=== PATIENT | female | born 1970 | race Caucasian/White ===

== ENCOUNTER 2016-09-25 15:33 | Emergency (ER) | payer SELFPAY ==
--- NOTE | 2016-09-25 17:37 | Emergency Department Report ---
Chief Complaint: Abdominal Pain Stated Complaint: VAG PAIN/HIP PAIN Time Seen by Provider: 09/25/16 17:26 - HPI History of Present Illness: 46-year-old [place] female comes in for complaint of pelvic pain and lower back pain. She does admit to foul smell of her vaginal discharge while not being on her period. LMP 09/22/2016, she admits to fever and chills. Denies any nausea or vomiting. - Exam Vital Signs: Vital Signs 09/25/16 15:45 Temperature 99.0 F Pulse Rate 76 Respiratory 20 Rate Blood Pressure 133/94 O2 Sat by Pulse 98 Oximetry Physical Exam: Patient's alert and oriented 3. Cardiovascular S1-S2 regular rate and rhythm respiratory clear to auscultation bilateral abdomen tenderness to the right lower quadrant right upper quadrant small marblelike cysts felt. MSE screening note: Focused history and physical exam performed. Due to findings the following was ordered: BC BMP urinalysis urine . Discussed with Dr. Morris patient will be seen in the back with MD's ED Disposition for MSE Condition: Stable Instructions: Abdominal Pain (ED)
[2016-09-25 17:59] LABS: Hematocrit 38.9 % (30.3-42.9); Hemoglobin 12.8 gm/dl (10.1-14.3); Mean Corpuscular HGB Conc 33 % (30-34); Mean Corpuscular Hemoglobin 29 pg (28-32); Mean Corpuscular Volume 89 fl (79-97); Platelet Count 345 K/mm3 (140-440); Red Blood Count 4.37 M/mm3 (3.65-5.03); Red Cell Distribution Width 14.7 % (13.2-15.2)
[2016-09-25 18:18] LABS: Blood Urea Nitrogen 17 mg/dL (7-17); Calcium 9.2 mg/dL (8.4-10.2); Carbon Dioxide 25 mmol/L (22-30); Chloride 103.8 mmol/L (98-107); Glucose 115 mg/dL (65-100); Sodium 142 mmol/L (137-145)
[2016-09-25 18:26] LABS: Anion Gap 17 mmol/L
[2016-09-26] MEDS ORDERED: ZOFRAN ODT PO ONE (03:09)
[2016-09-26] MEDS ORDERED: NORCO 5/325 PO ONE (03:09)
--- NOTE | 2016-09-26 03:16 | Emergency Department Report ---
HPI - General Chief Complaint: Abdominal Pain Time Seen by Provider: 09/25/16 17:26 - HPI HPI: Room 16 The patient is a 46-year-old female presenting with a chief complaint of abdominal pain. The patient states 3 days ago she developed pain in the right lower quadrant. The patient states the pain was initially intermittent but has now become constant. She describes pain as pressure. Patient was a subjective fever but denies nausea vomiting and diarrhea. Patient denies vaginal discharge. She complains of pain in her back. She admits to dysuria but states she always has pain when she urinates while on her cycle. The patient states she is currently on her cycle Location: Right lower quadrant Duration: 3 days Quality: Pressure Severity: 05/24 Modifying factors: [see above] Context: [see above] Mode of transportation: [not driving] ED Past Medical Hx - Past Medical History Previous Medical History?: No - Surgical History Past Surgical History?: No - Family History Family history: no significant - Social History Smoking Status: Current Some Day Smoker (1/3 pack per day) Substance Use Type: Alcohol (occasional) - Medications Home Medications: Home Medications Medication Instructions Recorded Confirmed Last Taken Type HYDROcodone/APAP 5-325 [[place] 1 - 2 each PO Q6HR PRN #14 tablet 09/26/16 Unknown Rx 5/325] Ibuprofen [Motrin 800 MG tab] 800 mg PO Q8HR PRN #20 tablet 09/26/16 Unknown Rx ED Review of Systems ROS: Stated complaint: VAG PAIN/HIP PAIN Other details as noted in HPI Comment: All other systems reviewed and negative Constitutional: fever (subjective) Eyes: denies: eye pain, eye discharge, vision change ENT: denies: ear pain, throat pain Respiratory: denies: cough, shortness of breath, wheezing Cardiovascular: denies: chest pain, palpitations Endocrine: no symptoms reported Gastrointestinal: abdominal pain. denies: nausea, vomiting, diarrhea Genitourinary: dysuria. denies: urgency, discharge Musculoskeletal: back pain Skin: denies: rash, lesions Neurological: denies: headache, weakness, paresthesias Psychiatric: denies: anxiety, depression Hematological/Lymphatic: denies: easy bleeding, easy bruising Physical Exam - Physical Exam Vital Signs: Vital Signs 09/25/16 15:45 Temperature 99.0 F Pulse Rate 76 Respiratory 20 Rate Blood Pressure 133/94 O2 Sat by Pulse 98 Oximetry Physical Exam: GENERAL: The patient is well-developed well-nourished male lying on stretcher not appearing to be in acute distress. [] HEENT: Normocephalic. Atraumatic. Extraocular motions are intact. Patient has moist mucous membranes. NECK: Supple. Trachea Midline CHEST/LUNGS: Clear to auscultation. There is no respiratory distress noted. HEART/CARDIOVASCULAR: Regular. There is no tachycardia. There is no gallop rub or murmur. ABDOMEN: Abdomen is soft, with mild discomfort to palpation in the right lower quadrant and suprapubic region. Patient has normal bowel sounds. There is no abdominal distention. SKIN: There is no rash. There is no edema. There is no diaphoresis. NEURO: The patient is awake, alert, and oriented. The patient is cooperative. The patient has normal speech MUSCULOSKELETAL: There is no evidence of acute injury. ED Course Vital Signs 09/25/16 15:45 Temperature 99.0 F Pulse Rate 76 Respiratory 20 Rate Blood Pressure 133/94 O2 Sat by Pulse 98 Oximetry ED Medical Decision Making - Lab Data Result diagrams: 09/25/16 17:42 09/25/16 17:42 Laboratory Tests 09/25/16 09/25/16 09/25/16 17:42 17:42 17:42 WBC 9.0 RBC 4.37 Hgb 12.8 Hct 38.9 MCV 89 MCH 29 MCHC 33 RDW 14.7 Plt Count 345 Sodium 142 Potassium 4.0 Chloride 103.8 Carbon Dioxide 25 Anion Gap 17 BUN 17 Creatinine 0.5 L Estimated GFR > 60 BUN/Creatinine Ratio 34.00 Glucose 115 H Calcium 9.2 Total Creatine Kinase 51 Urine Color Urine Turbidity Urine pH Ur Specific [place] Urine Protein Urine Glucose (UA) Urine Ketones Urine Blood Urine Nitrite Urine Bilirubin Urine Urobilinogen Ur Leukocyte Esterase Urine WBC (Auto) Urine RBC (Auto) U Epithel Cells (Auto) Urine HCG, Qual 09/26/16 03:20 WBC RBC Hgb Hct MCV MCH MCHC RDW Plt Count Sodium Potassium Chloride Carbon Dioxide Anion Gap BUN Creatinine Estimated GFR BUN/Creatinine Ratio Glucose Calcium Total Creatine Kinase Urine Color Yellow Urine Turbidity Clear Urine pH 5.0 Ur Specific [place] 1.014 Urine Protein <15 mg/dl Urine Glucose (UA) Neg Urine Ketones Neg Urine Blood Lg Urine Nitrite Neg Urine Bilirubin Neg Urine Urobilinogen < 2.0 Ur Leukocyte Esterase Neg Urine WBC (Auto) 1.0 Urine RBC (Auto) 1.0 U Epithel Cells (Auto) 1.0 Urine HCG, Qual Negative Laboratory Tests 09/25/16 09/25/16 09/25/16 17:42 17:42 17:42 WBC 9.0 RBC 4.37 Hgb 12.8 Hct 38.9 MCV 89 MCH 29 MCHC 33 RDW 14.7 Plt Count 345 Sodium 142 Potassium 4.0 Chloride 103.8 Carbon Dioxide 25 Anion Gap 17 BUN 17 Creatinine 0.5 L Estimated GFR > 60 BUN/Creatinine Ratio 34.00 Glucose 115 H Calcium 9.2 Total Creatine Kinase 51 Urine Color Urine Turbidity Urine pH Ur Specific [place] Urine Protein Urine Glucose (UA) Urine Ketones Urine Blood Urine Nitrite Urine Bilirubin Urine Urobilinogen Ur Leukocyte Esterase Urine WBC (Auto) Urine RBC (Auto) U Epithel Cells (Auto) Urine HCG, Qual 09/26/16 03:20 WBC RBC Hgb Hct MCV MCH MCHC RDW Plt Count Sodium Potassium Chloride Carbon Dioxide Anion Gap BUN Creatinine Estimated GFR BUN/Creatinine Ratio Glucose Calcium Total Creatine Kinase Urine Color Yellow Urine Turbidity Clear Urine pH 5.0 Ur Specific [place] 1.014 Urine Protein <15 mg/dl Urine Glucose (UA) Neg Urine Ketones Neg Urine Blood Lg Urine Nitrite Neg Urine Bilirubin Neg Urine Urobilinogen < 2.0 Ur Leukocyte Esterase Neg Urine WBC (Auto) 1.0 Urine RBC (Auto) 1.0 U Epithel Cells (Auto) 1.0 Urine HCG, Qual Negative - Radiology Data Radiology results: report reviewed (CT abdomen and pelvis), image reviewed (CT abdomen and pelvis) CT abdomen and pelvis (read by radiologist)-there is no evidence of intestinal or urinary tract obstruction. No ileus or enteritis. The appendix is normal. Cholelithiasis. Bilateral paresis. The right ovary cyst measures 5 cm. Makes attenuation within the uterus may represent fibroid formation. Further evaluation with ultrasound may be appropriate. - Differential Diagnosis UTI, pyelonephritis, ovarian cyst, renal colic Critical care attestation.: If time is entered above; I have spent that time in minutes in the direct care of this critically ill patient, excluding procedure time. ED Disposition Clinical Impression: Acute abdominal pain, Bilateral ovarian cysts Disposition: DISCHARGED TO HOME OR SELFCARE Is pt being admited?: No Does the pt Need Aspirin: No Condition: Stable Instructions: Abdominal Pain (ED), Ovarian Cyst (ED) Additional Instructions: Return to the emergency department immediately should you develop worsening symptoms, fever, inability to tolerate food or liquid or any other concerns. Prescriptions: HYDROcodone/APAP 5-325 [[place] 5/325] 1 - 2 each PO Q6HR PRN #14 tablet PRN Reason: Pain Ibuprofen [Motrin 800 MG tab] 800 mg PO Q8HR PRN #20 tablet PRN Reason: Pain Referrals: PRIMARY CARE, [Primary Care Provider] - 3-5 Days ROSALINA MARCANO MD [Staff Physician] - 2-3 Days (Dr Marcano is an [employer]. Please follow up with him for further evaluation) Print Language: YAKUT
[2016-09-26 03:56] LABS: Bilirubin,Urine NEG (Negative); Blood,Urine LG (Negative); Ketones,Urine NEG (Negative); Leukocyte Esterase,Urine NEG (Negative); Nitrite,Urine NEG (Negative); Protein,Urine <15 mg/dL mg/dL (Negative); Urobilinogen,Urine < 2.0 mg/dL (<2.0)
[2016-09-26] MEDS ORDERED: NACL ONE (04:10)
--- NOTE | 2016-09-26 05:07 | Cat Scan Report ---
FINAL REPORT PROCEDURE: CT ABDOMEN PELVIS W CON TECHNIQUE: Computerized axial tomography of the abdomen and pelvis was performed after the IV injection of iodinated nonionic contrast. HISTORY: right lower quadrant abdominal pain COMPARISON: No prior studies are available for comparison. FINDINGS: Visualized lower thorax: No significant abnormality. Liver: Normal size and attenuation. Spleen: Normal size and attenuation. Gallbladder and biliary system: There are multiple stones identified within the gallbladder. No dilatation of the biliary ductal system. Pancreas: Normal. Adrenals: Normal. Kidneys: Both kidneys have a normal size. No hydronephrosis. No renal stones or masses. GI tract: The stomach is normal. A small hiatal hernia is identified. The small bowel has a normal caliber without obstruction. No ileus or enteritis. The cecum, appendix and colon are normal.. Lymph nodes and mesentery: Normal. Vasculature: Normal. Bladder: Normal. Reproductive organs: There is a 5 centimeter cyst on the right ovary. A 3 centimeter cyst is seen on the left ovary. The uterus has a normal size. There is some mixed attenuation within the uterus. Fibroid formation is possible. Further evaluation with ultrasound may be of benefit.. Peritoneum: No free fluid. Musculoskeletal structures: No significant abnormality. Other: None. IMPRESSION: There is no evidence of intestinal or urinary tract obstruction. No ileus or enteritis. The appendix is normal. Cholelithiasis. Bilateral ovary cysts. The right the ovary cyst measures 5 centimeters. Mixed attenuation within the uterus may represent fibroid formation. Further evaluation with ultrasound may be appropriate.
[2016-09-26 06:02] VITALS: BP 128/78
== END 2016-09-26 05:50 | disposition home or self-care (01) ==
LOC: ED 15:33
DX: N83.202 Unspecified ovarian cyst, left side (principal); N83.201 Unspecified ovarian cyst, right side; F17.200 Nicotine dependence, unspecified, uncomplicated
CPT/HCPCS: 36415; 74177; 80048; 81001; 81025; 82550; 85027; 99284; Q9967; Q0162